=== PATIENT | female | born 1935 | race Caucasian/White ===

== ENCOUNTER 2018-03-08 10:46 | Inpatient (IN) ==
[2018-03-08] MEDS ORDERED: Morphine Inj 4 MG/ML Vial IV.PUSH ONE (11:14)
--- NOTE | 2018-03-08 11:36 | ED ---
HPI General Chief Complaint: Fall Stated Complaint: Fall/Lt shoulder pain Time Seen by Provider: 03/08/18 11:04 Source: patient Mode of arrival: EMS Limitations: no limitations History of Present Illness MD complaint: injury to: left and shoulder Onset (ago): minute(s) Other injuries: none Place: outdoors (fell onto concrete) Severity scale (1-10): 9 Relieving factors: immobilization Exacerbating factors: movement of extremity Context: fall Associated symptoms: denies other symptoms Treatments prior to arrival: cold therapy Related Data Home Medications Medication Instructions Recorded Confirmed No Known Home Medications 03/08/18 03/08/18 Allergies Allergy/AdvReac Type Severity Reaction Status Date / Time erythromycin base AdvReac Severe upset Unverified 03/08/18 11:01 stomach penicillin G AdvReac Severe upset Unverified 03/08/18 11:01 stomach Sulfa (Sulfonamide AdvReac Severe upset Unverified 03/08/18 11:01 Antibiotics) stomach Review of Systems ROS: all other systems reviewed are negative [facility] Medical History Medical History Fractured elbow (Acute) H/O: hysterectomy (Acute) Skin cancer (Acute) Surgical History Surgical History History of appendectomy (Acute) History of tonsillectomy (Acute) Social History Social History Substance History: No History of Abuse Smoking Status: Current every day smoker Tobacco Type: Cigarettes How Often Do You Have a Drink Containing Alcohol: Never Recent Travel in [facility] within the Last 8 Weeks: No Recent Out of Country Travel within the Last 8 Weeks: No Immunization History Tetanus Immunization: <5 Years Hx Influenza Vaccine This Season: No Exam Const General: cooperative, healthy appearing, well developed and well groomed Nutritional Appearance: thin (elderly) Orientation: alert, awake and oriented x3 HENMT Head: normal to inspection, normocephalic and atraumatic Eyes Alignment and Position: alignment normal Conjunctivae: conjunctivae normal Sclera: sclerae normal EOM: EOM intact bilaterally Neck Neck: normal visual inspection and full ROM Chest Chest: normal inspection of the chest Resp Effort & Inspection: normal respiratory effort and able to speak in complete sentences Cardio Rate: regular rate Rhythm: regular rhythm Back/Spine/Pelvis Cervical Spine: cervical ROM normal Thoracic/Lumbar Spine: thoraco-lumbar ROM normal Skin General: no rashes or lesions noted, turgor normal and other (intact) Neuro General: alert, awake, oriented x3, moves all extremities and CN's II-XI intact bilaterally Extrem Left upper extremity: normal capillary refill and shoulder/upper arm Details: abnormal to inspection, tenderness, abnormal ROM and deformity; no abrasions and no lacerations Psych Appearance: grossly normal Mental Status: mental status grossly normal Speech and Movement: speech and movement normal Mood: congruent mood Affect: normal affect Attitude: cooperative Thought Process: normal Thought Content: normal Judgment: judgment good Course Reevaluation(s) Reevaluation #1: Patient reports continued severe pain. She was initially treated with morphine, 4 mg IV. She will now be given Dilaudid, 2 mg IV. Time: 12:12 Consultations Consultation #1: Dr. Dashawn Ham will admit Time: 12:25 Initial Documented Vital Signs Temperature 97.8 F 03/08/18 10:56 Pulse Rate 99 H 03/08/18 10:56 Respiratory Rate 24 03/08/18 10:56 Blood Pressure 199/92 H 03/08/18 10:56 Pulse Oximetry 100 03/08/18 10:56 Last Documented Vital Signs Temperature 97.8 F 03/08/18 10:56 Pulse Rate 95 H 03/08/18 11:30 Respiratory Rate 20 03/08/18 11:30 Blood Pressure 201/85 H 03/08/18 11:30 Pulse Oximetry 98 03/08/18 11:30 Medical Decision Making [facility] Narrative Medical decision making narrative: This patient had a trip and fall landing on her left shoulder on concrete. This occurred just prior to presentation. She has no other injuries. On exam she does have an apparent deformity of her left shoulder just distal to the glenohumeral joint. It looks like she probably has a fracture of of the neck of the humerus. She is distally neurovascularly intact. X-rays pending. Her pain is being treated with IV morphine. Medical Screen Exam Complete: Yes Emergency Medical Condition: Yes Differential Diagnosis Differential Diagnosis: Differential diagnosis of extremity trauma includes but is not limited to fracture, sprain or strain, dislocation, contusion Imaging Data Attestation: I personally reviewed and interpreted this imaging study as follows : My impression: She has a fracture just distal to the left humeral head. Radiologist's impression: Humerus X-Ray 03/08/18 11:14 CONCLUSION: Under mineralized bones with transverse fracture through the proximal humeral neck, as above. Shoulder X-Ray 03/08/18 11:14 CONCLUSION: Under mineralized bones with a transverse minimally displaced fracture of the proximal humeral neck. Discharge Plan Discharge Disposition Patient Disposition: 30 Still Patient Discharge Details Diagnosis: Closed left humeral fracture, Hypertensive urgency Physicians Team ED Provider: Beata Emmanuel Rxs /Orders / Referrals /Forms Prescriptions: No Action No Known Home Medications RF: 0 Discharge Interventions Interventions: Vital Signs Last Done: 03/08/18 11:30 Status ED Status: Pending Admission
--- NOTE | 2018-03-08 12:08 | XR ---
EXAM DATE: 03/08/2018 11:14 AM EDT AGE/SEX: 82 years / Female INDICATIONS: Fell on left shoulder today, has pain, limited ROM CLINICAL DATA: This is the patient's initial encounter. Patient reports that signs and symptoms have been present for 1 day and indicates a pain score of 10/10. MEDICAL/SURGICAL HISTORY: None. None. COMPARISON: HPO, SHOULDER LIMITED LEFT 2V, 03/08/2018. . FINDINGS: AP and lateral views of the left humerus demonstrate a transverse fracture through the proximal humer al surgical neck region. Fracture is a minimally displaced by approximately 3 mm laterally with mild shortening. There is no glenohumeral joint dislocation. Acromioclavicular joint appears intact. No so ft tissue abnormality is identified. Bones are under mineralized. No rib fracture is seen. CONCLUSION: Under mineralized bones with transverse fracture through the proximal humeral neck, as above. Electronically signed by: Moy Purvis MD 03/08/2018 12:07 PM EDT
--- NOTE | 2018-03-08 12:09 | XR ---
EXAM DATE: 03/08/2018 11:14 AM EDT AGE/SEX: 82 years / Female INDICATIONS: Fell on left shoulder today, has pain, limited ROM CLINICAL DATA: This is the patient's initial encounter. Patient reports that signs and symptoms have been present for 1 day and indicates a pain score of 10/10. MEDICAL/SURGICAL HISTORY: None. None. COMPARISON: [facility]PO, HUMERUS LEFT MIN 2V, 03/08/2018. . FINDINGS: 3 views of the left shoulder demonstrate under mineralized bones with transverse minimally displaced fracture of the proximal humeral surgical neck. There is mild shortening. No glenohumeral joint dislo cation is seen. Acromioclavicular joint is intact. No soft tissue abnormality or radiopaque foreign b hank is identified. There is calcification of the aorta but visualized chest demonstrates no acute abn ormality or rib fracture. There is dextroscoliosis of the thoracic spine. CONCLUSION: Under mineralized bones with a transverse minimally displaced fracture of the proximal humeral neck. Electronically signed by: Moy Purvis MD 03/08/2018 12:08 PM EDT
[2018-03-08] MEDS ORDERED: HYDROmorphone PF Inj 2 MG/ML Vial IV.PUSH ONE (12:12)
--- NOTE | 2018-03-08 12:33 | P.HPIM ---
History of Present Illness History of Present Illness: Mr. Nguyễn is an 82 year old female. She is here after a fall. The fall occured at home, in her yard, due to poor balance. Her sons, present at bedside , report that she has fallen several times this year. She has a proximal left humerus fracture after this fall. Additionally HTN urgency is present. She is not on treatment for HTN at baseline. BP is greater than 200 mmHg systolic. BP remains such at time of admit and exam. No other complaints today. - Diagnosis (1) Closed left humeral fracture (2) Hypertensive urgency Inpatient Certification: I certify that the inpatient services were ordered in accordance with Medicare regulations governing the order. This includes certification that hospital inpatient services are reasonable and necessary and in the case of services not specified as inpatient-only under 42 CFR 419.22(n), that they are appropriately provided as inpatient services in accordance to with the 2-midnight benchmark under 43 CFR 412.3(e) Estimated Total Length of Stay (Days): 3 Plans for Post Hospital Care: SNF Review of Systems Constitutional: No fevers, no chills no night sweats, no fatigue, no weakness Eyes: No eye pain, no blurry vision, no loss of vision ENT: No sore throat, no ear pain, no rhinorrhea Cardiovascular: No chest pain, no tachycardia, no palpitations, no shortness of breath, no syncope Respiratory: No wheezing, no cough, no shortness of breath Gastrointestinal: No abdominal pain, no black tarry stools, no bright red blood per rectum, no vomiting, no diarrhea Musculoskeletal: joint pain, no muscle cramps, no stiffness Integumentary: No rash, no ulcers, no drainage Neurologic: No sensory loss, no loss of motor function, no dizziness Psychiatric: No behavioral changes, no hallucinations, no suicidal ideations PMFSH - History History Provided By: Patient - Medical History Medical History: Medical History (Last Reviewed 03/08/18 @ 11:34 by Beata Emmanuel) Fractured elbow H/O: hysterectomy Skin cancer - Surgical History Surgical History: Surgical History (Last Reviewed 03/08/18 @ 11:34 by Beata Emmanuel) History of appendectomy History of tonsillectomy - Family History Family History: Family History (Last Updated 03/08/18 @ 12:30 by Sheldon Ham MD) Other Osteoarthritis - Tobacco History Tobacco Use In Past 30 Days: Yes Smoking Status: Current every day smoker Tobacco Type: Cigarettes - Alcohol History How Often Do You Have a Drink Containing Alcohol: Never - Substance Use History Substance History: No History of Abuse - Travel History Recent Travel in the [place] Within the Last 8 Weeks: No Recent Travel Out of the Country Within the Last 8 Weeks: No - Immunization History Tetanus Immunization: <5 Years Hx Influenza Vaccine This Season: No Medications and Allergies Active Medications: Active Medications Hydrocodone Bitart/Acetaminophen ([place] 5/325) 1 tab PO Q4H PRN PRN Reason: Pain 3 to 6 Hydrocodone Bitart/Acetaminophen ([place] 10/325) 1 tab PO Q4H PRN PRN Reason: Pain 7 to 10 Al Hydroxide/Mg Hydroxide (Milk Of Rafaela Liq) 30 ml PO Q12H PRN PRN Reason: Mild Constipation Clonidine HCl (Catapres) 0.1 mg PO Q6H PRN PRN Reason: SYS BP GREATER THAN 160 MMHG Enalaprilat (Vasotec Inj) 1.25 mg IV.PUSH Q6H PRN PRN Reason: SBP>160, DBP>90 Ondansetron HCl (Zofran Inj) 4 mg IV.PUSH Q6H PRN PRN Reason: NAUSEA OR VOMITING Allergies Allergy/AdvReac Type Severity Reaction Status Date / Time erythromycin base AdvReac Severe upset Unverified 03/08/18 11:01 stomach penicillin G AdvReac Severe upset Unverified 03/08/18 11:01 stomach Sulfa (Sulfonamide AdvReac Severe upset Unverified 03/08/18 11:01 Antibiotics) stomach Home Medications Medication Instructions Recorded Confirmed Type No Known Home Medications 03/08/18 03/08/18 History Exam Vital signs: Vital Signs 03/08/18 10:56 03/08/18 11:30 Temperature 97.8 F Pulse Rate 99 H 95 H Respiratory Rate 24 20 Blood Pressure 199/92 H 201/85 H Pulse Oximetry 100 98 Intake & Output 03/07/18 03/08/18 03/08/18 18:59 06:59 18:59 Weight 47.5 kg Narrative: GENERAL: NAD, A&Ox3 HEAD: Normocephalic. NECK: Supple, trachea midline. No lymphadenopathy. EYES: No scleral icterus. No injection or drainage. CARDIOVASCULAR: Regular rate and rhythm without murmurs, gallops, or rubs. RESPIRATORY: Breath sounds equal bilaterally. No accessory muscle use. GASTROINTESTINAL: Abdomen soft, non-tender, nondistended. MUSCULOSKELETAL: No cyanosis, or edema. SKIN: Warm and dry. NEURO: No focal neurological deficits. Results - Labs CBC & Chem 7: 03/08/18 13:30 03/08/18 13:30 - Imaging Impressions Humerus X-Ray 03/08/18 11:14 CONCLUSION: Under mineralized bones with transverse fracture through the proximal humeral neck, as above. Shoulder X-Ray 03/08/18 11:14 CONCLUSION: Under mineralized bones with a transverse minimally displaced fracture of the proximal humeral neck. Caprini VTE Risk Assessment Caprini VTE Risk Assessment: No/Low Risk (score <= 1) Caprini Risk Assessment Model: Point Value = 1 Point Value = 2 Point Value = 3 Point Value = 5 Age 41-60 Minor surgery BMI > 25 kg/m2 Swollen legs Varicose veins or History of unexplained or recurrent spontaneous Oral contraceptives or hormone replacement Sepsis (< 1 month) Serious lung disease, including pneumonia (< 1 month) Abnormal pulmonary function Acute myocardial infarction Congestive heart failure (< 1 month) History of inflammatory bowel disease Medical patient at bed rest Age 61-74 Arthroscopic surgery Major open surgery (> 45 min) Laparoscopic surgery (> 45 min) Malignancy Confined to bed (> 72 hours) Immobilizing plaster cast Central venous access Age >= 75 History of VTE Family history of VTE Factor V Leiden Prothrombin [id number] Lupus anticoagulant Anticardiolipin antibodies Elevated serum homocysteine Heparin-induced thrombocytopenia Other congenital or acquired thrombophilia Stroke (< 1 month) Elective arthroplasty Hip, pelvis, or leg fracture Acute spinal cord injury (< 1 month) Prophylaxis Regimen: Total Risk Factor Score Risk Level Prophylaxis Regimen 0-1 Low Early ambulation 2 Moderate Order ONE of the following: *Sequential Compression Device (SCD) *Heparin 5000 units SQ BID 3-4 Higher Order ONE of the following medications: *Heparin 5000 units SQ TID *Enoxaparin/Lovenox 40 mg SQ daily (WT < 150 kg, CrCl > 30 mL/min) *Enoxaparin/Lovenox 30 mg SQ daily (WT < 150 kg, CrCl > 10-29 mL/min) *Enoxaparin/Lovenox 30 mg SQ BID (WT < 150 kg, CrCl > 30 mL/min) AND/OR *Sequential Compression Device (SCD) 5 or more Highest Order ONE of the following medications: *Heparin 5000 units SQ TID (Preferred with Epidurals) *Enoxaparin/Lovenox 40 mg SQ daily (WT < 150 kg, CrCl > 30 mL/min) *Enoxaparin/Lovenox 30 mg SQ daily (WT < 150 kg, CrCl > 10-29 mL/min) *Enoxaparin/Lovenox 30 mg SQ BID (WT < 150 kg, CrCl > 30 mL/min) AND *Sequential Compression Device (SCD) Assessment and Plan - Assessment (1) Closed left humeral fracture Code(s): S42.302A - Unspecified fracture of shaft of humerus, left arm, initial encounter for closed fracture Status: Acute (2) Hypertensive urgency Code(s): I16.0 - Hypertensive urgency Status: Acute - Plan 82-year-old female admitted secondary to acute left proximal humerus fracture and hypertensive urgency Acute Left proximal humerus fracture Sling placed This is a nonsurgical fracture Obtain physical therapy Obtain occupational therapy screen for underlying etiology of weakness with urinalysis, CBC, and CMP [place] as needed for pain Hypertensive urgency As needed clonidine As needed IV enalapril Follow blood pressures Treat pain as above DVT Prophylaxis SCDs (1) Closed left humeral fracture Qualifiers: Encounter type: initial encounter Humerus Location: proximal Fracture morphology: other fracture Fracture alignment: displaced Qualified Code(s): S42.292A - Other displaced fracture of upper end of left humerus, initial encounter for closed fracture
[2018-03-08 13:42] LABS: Baso # (Auto) 0.2 th/mm3 (0.0-0.2); Baso % (Auto) 1.3 % (0.0-2.0); Eos % (Auto) 0.1 % (0.0-4.0); Hematocrit 34.1 % (35.0-46.0); Hemoglobin 11.3 gm/dL (11.6-15.3); Lymph # (Auto) 1.6 th/mm3 (1.0-4.8); Lymph % (Auto) 9.4 % (9.0-44.0); Mean Corpuscular Hemoglobin 30.3 pg (27.0-34.0); Mean Corpuscular Volume 91.8 fL (80.0-100.0); Mean Platelet Volume 7.2 fL (7.0-11.0); Mono # (Auto) 0.6 th/mm3 (0.0-0.9); Mono % (Auto) 3.6 % (0.0-8.0); Neut # (Auto) 14.2 th/mm3 (1.8-7.7); Neut % (Auto) 85.6 % (16.0-70.0); Platelet Count 314 th/mm3 (150-450); Red Blood Count 3.71 mil/mm3 (4.00-5.30); Red Cell Distribution Width 13.1 % (11.6-17.2); White Blood Count 16.6 th/mm3 (4.0-11.0)
[2018-03-08 13:53] LABS: Chloride 109 meq/L (98-107); Potassium 3.9 meq/L (3.5-5.1); Sodium 143 meq/L (136-145)
[2018-03-08 13:56] LABS: Albumin 3.6 g/dL (3.4-5.0); Anion Gap 10 meq/L (5-15); Calcium 8.4 mg/dL (8.5-10.1); Carbon Dioxide 23.7 meq/L (21.0-32.0); Glucose,Random 120 mg/dL (74-106)
[2018-03-08 13:57] LABS: Blood Urea Nitrogen 17 mg/dL (7-18)
[2018-03-08 13:59] LABS: Alanine Aminotransferase 14 U/L (10-53)
[2018-03-08 14:00] LABS: Aspartate Aminotransferase 20 U/L (15-37); Glomerular Filtration Rate 54 mL/min (>89)
[2018-03-08 14:01] LABS: Total Protein 6.5 g/dL (6.4-8.2)
[2018-03-08 14:02] LABS: Alkaline Phosphatase 94 U/L (45-117)
[2018-03-09 00:09] LABS: Bilirubin,Urine Negative (Negative); Clarity,Urine Clear (Clear); Color,Urine Yellow (Yellw/Straw); Glucose,Urine (UA) Negative (Negative); Leukocyte Esterase,Urine Trace (Negative); Nitrite,Urine Negative (Negative); Specific Gravity,Urine 1.025 (1.002-1.035); Urobilinogen,Urine 0.2 mg/dL (Less than 2)
[2018-03-09 00:19] LABS: Bacteria,Urine Occasional /hpf; RBC,Urine 0-3 /hpf (0-3)
[2018-03-09 06:44] LABS: Baso % (Auto) 0.3 % (0.0-2.0); Eos % (Auto) 0.3 % (0.0-4.0); Hematocrit 30.9 % (35.0-46.0); Hemoglobin 10.2 gm/dL (11.6-15.3); Lymph # (Auto) 1.3 th/mm3 (1.0-4.8); Lymph % (Auto) 14.7 % (9.0-44.0); Mean Corpuscular HGB Conc 33.1 % (32.0-36.0); Mean Corpuscular Hemoglobin 30.7 pg (27.0-34.0); Mean Corpuscular Volume 92.6 fL (80.0-100.0); Mean Platelet Volume 7.9 fL (7.0-11.0); Mono # (Auto) 0.6 th/mm3 (0.0-0.9); Neut # (Auto) 6.9 th/mm3 (1.8-7.7); Neut % (Auto) 77.7 % (16.0-70.0); Platelet Count 266 th/mm3 (150-450); Red Blood Count 3.34 mil/mm3 (4.00-5.30); Red Cell Distribution Width 13.1 % (11.6-17.2); White Blood Count 8.8 th/mm3 (4.0-11.0)
[2018-03-09 06:50] LABS: Chloride 106 meq/L (98-107); Potassium 3.9 meq/L (3.5-5.1); Sodium 141 meq/L (136-145)
[2018-03-09 06:58] LABS: Calcium 8.4 mg/dL (8.5-10.1)
[2018-03-09 06:59] LABS: Albumin 3.2 g/dL (3.4-5.0); Anion Gap 8 meq/L (5-15); Blood Urea Nitrogen 17 mg/dL (7-18); Carbon Dioxide 26.8 meq/L (21.0-32.0); Glucose,Random 100 mg/dL (74-106)
[2018-03-09 07:02] LABS: Alanine Aminotransferase 17 U/L (10-53); Aspartate Aminotransferase 18 U/L (15-37); Glomerular Filtration Rate 65 mL/min (>89)
[2018-03-09 07:03] LABS: Total Protein 6.3 g/dL (6.4-8.2)
[2018-03-09 07:04] LABS: Alkaline Phosphatase 92 U/L (45-117)
--- NOTE | 2018-03-09 12:56 | P.PNIM ---
Subjective Interval history: Ambulation is not yet adequate for discharge home. Patient may need long term facility at discharge. No new complaints today. Physical Exam Vital signs: Vital Signs 03/08/18 13:25 03/08/18 14:00 03/08/18 18:41 Temperature Pulse Rate 101 H 99 H Respiratory Rate 17 20 Blood Pressure 178/81 H 142/88 H 130/80 Pulse Oximetry 03/08/18 20:00 03/08/18 23:50 03/09/18 00:00 Temperature 97.5 F L 96.4 F L Pulse Rate 88 88 Respiratory Rate 20 16 20 Blood Pressure 161/82 H 167/81 H Pulse Oximetry 99 98 03/09/18 04:00 03/09/18 08:00 Temperature 96.6 F L 97.4 F L Pulse Rate 82 81 Respiratory Rate 20 19 Blood Pressure 146/74 H 77/46 L Pulse Oximetry 97 99 Intake & Output 03/08/18 03/09/18 03/09/18 18:59 06:59 18:59 Intake Total 60 / 60 120 / 120 Balance 60 / 60 120 / 120 Weight 47.5 kg 46.1 kg Intake: Oral 60 / 60 120 / 120 Other: # Voids 2 Weight On Admission 47.5 kg Narrative: GENERAL: NAD, A&Ox3 HEAD: Normocephalic. NECK: Supple, trachea midline. No lymphadenopathy. EYES: No scleral icterus. No injection or drainage. CARDIOVASCULAR: Regular rate and rhythm without murmurs, gallops, or rubs. RESPIRATORY: Breath sounds equal bilaterally. No accessory muscle use. GASTROINTESTINAL: Abdomen soft, non-tender, nondistended. MUSCULOSKELETAL: No cyanosis, or edema. Left arm is presently in a sling. SKIN: Warm and dry. NEURO: No focal neurological deficits. Results - Labs CBC & Chem 7: 03/09/18 05:10 03/09/18 05:10 Laboratory Results - last 24 hr 03/08/18 03/08/18 03/08/18 13:30 13:30 23:50 CBC w Diff Auto diff final WBC 16.6 H RBC 3.71 L Hgb 11.3 L Hct 34.1 L MCV 91.8 MCH 30.3 MCHC 33.0 RDW 13.1 Plt Count 314 MPV 7.2 Neut % (Auto) 85.6 H Lymph % (Auto) 9.4 Morris % (Auto) 3.6 Eos % (Auto) 0.1 Baso % (Auto) 1.3 Neut # (Auto) 14.2 H Lymph # (Auto) 1.6 Morris # (Auto) 0.6 Eos # (Auto) 0.0 Baso # (Auto) 0.2 WBC Differential . Differential Comment . Sodium 143 Potassium 3.9 Chloride 109 H Carbon Dioxide 23.7 Anion Gap 10 BUN 17 Creatinine 0.98 Estimated GFR 54 L Random Glucose 120 H Calcium 8.4 L Total Bilirubin 0.4 AST 20 ALT 14 Alkaline Phosphatase 94 Total Protein 6.5 Albumin 3.6 Urine Color Yellow Urine Clarity Clear Urine pH 6.0 Ur Specific [place] 1.025 Urine Protein Trace Urine Glucose (UA) Negative Urine Ketones Trace H Urine Occult Blood Negative Urine Nitrate Negative Urine Bilirubin Negative Urine Urobilinogen 0.2 Ur Leukocyte Esterase Trace H Urine RBC 0-3 Urine WBC 6-8 H Ur Squamous Epith Cells 6-10 H Urine Bacteria Occasional H Micro UA Comment Culture not ind Ur Microscopic Review Microscopic reviewed Urine Culture Comments Culture not ind 03/09/18 03/09/18 05:10 05:10 CBC w Diff Auto diff final WBC 8.8 RBC 3.34 L Hgb 10.2 L Hct 30.9 L MCV 92.6 MCH 30.7 MCHC 33.1 RDW 13.1 Plt Count 266 MPV 7.9 Neut % (Auto) 77.7 H Lymph % (Auto) 14.7 Morris % (Auto) 7.0 Eos % (Auto) 0.3 Baso % (Auto) 0.3 Neut # (Auto) 6.9 Lymph # (Auto) 1.3 Morris # (Auto) 0.6 Eos # (Auto) 0.0 Baso # (Auto) 0.0 WBC Differential . Differential Comment . Sodium 141 Potassium 3.9 Chloride 106 Carbon Dioxide 26.8 Anion Gap 8 BUN 17 Creatinine 0.83 Estimated GFR 65 L Random Glucose 100 Calcium 8.4 L Total Bilirubin 0.7 AST 18 ALT 17 Alkaline Phosphatase 92 Total Protein 6.3 L Albumin 3.2 L Urine Color Urine Clarity Urine pH Ur Specific [place] Urine Protein Urine Glucose (UA) Urine Ketones Urine Occult Blood Urine Nitrate Urine Bilirubin Urine Urobilinogen Ur Leukocyte Esterase Urine RBC Urine WBC Ur Squamous Epith Cells Urine Bacteria Micro UA Comment Ur Microscopic Review Urine Culture Comments Assessment and Plan - Assessment (1) Closed left humeral fracture Code(s): S42.302A - Status: Inactive (2) Hypertensive urgency Code(s): I16.0 - Hypertensive urgency Status: Inactive - Plan 82-year-old female admitted secondary to acute left proximal humerus fracture and hypertensive urgency Acute Left proximal humerus fracture Sling placed Swath and sling recommended to family. This is a nonsurgical fracture Continue physical therapy Continue occupational therapy screen for underlying etiology of weakness with urinalysis, CBC, and CMP [place] as needed for pain Hypertensive urgency Improved As needed clonidine As needed IV enalapril Follow blood pressures Treat pain as above DVT Prophylaxis SCDs (1) Closed left humeral fracture Qualifiers: Encounter type: initial encounter Humerus Location: proximal Fracture morphology: other fracture Fracture alignment: displaced Qualified Code(s): S42.292A - Other displaced fracture of upper end of left humerus, initial encounter for closed fracture
--- NOTE | 2018-03-10 09:38 | P.PNIM ---
Subjective Interval history: Patient has ambulated short distances. She is not functional for return to home. Anticipate care home facility at discharge. Physical Exam Vital signs: Vital Signs 03/09/18 12:00 03/09/18 14:00 03/09/18 16:00 Temperature 97.4 F L 98.5 F 97.4 F L Pulse Rate 81 84 80 Respiratory Rate 19 21 21 Blood Pressure 172/73 H 180/85 H 117/56 L Pulse Oximetry 99 97 97 03/09/18 20:00 03/10/18 00:00 03/10/18 08:00 Temperature 97.7 F 96.8 F L 98.1 F Pulse Rate 92 H 89 88 Respiratory Rate 18 18 19 Blood Pressure 131/61 135/62 151/67 H Pulse Oximetry 95 96 Intake & Output 03/09/18 03/10/18 03/10/18 18:59 06:59 18:59 Intake Total 240 / 240 425 / 425 240 / 240 Output Total 120 / 120 240 / 240 Balance 120 / 120 425 / 425 0 / 0 Weight 46.6 kg Intake: Oral 240 / 240 425 / 425 240 / 240 Output: Urine 120 / 120 240 / 240 Other: # Voids 1 Narrative: GENERAL: NAD, A&Ox3 HEAD: Normocephalic. NECK: Supple, trachea midline. No lymphadenopathy. EYES: No scleral icterus. No injection or drainage. CARDIOVASCULAR: Regular rate and rhythm without murmurs, gallops, or rubs. RESPIRATORY: Breath sounds equal bilaterally. No accessory muscle use. GASTROINTESTINAL: Abdomen soft, non-tender, nondistended. MUSCULOSKELETAL: No cyanosis, or edema. Left arm is presently in a sling. SKIN: Warm and dry. NEURO: No focal neurological deficits. Results - Labs CBC & Chem 7: 03/09/18 05:10 03/09/18 05:10 Assessment and Plan - Assessment (1) Closed left humeral fracture Code(s): S42.302A - Unspecified fracture of shaft of humerus, left arm, initial encounter for closed fracture Status: Inactive (2) Hypertensive urgency Code(s): I16.0 - Hypertensive urgency Status: Inactive - Plan 82-year-old female admitted secondary to acute left proximal humerus fracture and hypertensive urgency Anticipate care home facility discharge tomorrow. Continue pain treatments. Continue working with physical therapy and Occupational Therapy. Acute Left proximal humerus fracture Sling placed Swath and sling recommended to family. This is a nonsurgical fracture Continue physical therapy Continue occupational therapy screen for underlying etiology of weakness with urinalysis, CBC, and CMP [place] as needed for pain Hypertensive urgency Improved As needed clonidine As needed IV enalapril Follow blood pressures Treat pain as above DVT Prophylaxis SCDs (1) Closed left humeral fracture Qualifiers: Encounter type: initial encounter Humerus Location: proximal Fracture morphology: other fracture Fracture alignment: displaced Qualified Code(s): S42.292A - Other displaced fracture of upper end of left humerus, initial encounter for closed fracture
--- NOTE | 2018-03-10 15:57 | P.DS ---
Date of admission: 03/08/18 12:24 Primary care physician: No Primary Care Physician Brief History from admission: Mr. Nguyễn is an 82 year old female. She is here after a fall. The fall occured at home, in her yard, due to poor balance. Her sons, present at bedside , report that she has fallen several times this year. She has a proximal left humerus fracture after this fall. Additionally HTN urgency is present. She is not on treatment for HTN at baseline. BP is greater than 200 mmHg systolic. BP remains such at time of admit and exam. No other complaints today. DS: Diagnosis - Discharge Diagnosis (1) Closed left humeral fracture Status: Inactive (2) Hypertensive urgency Status: Inactive DS: Medications - Discharge Medications Prescriptions: clonidine HCl [Catapres] 0.1 mg PO Q6H PRN #20 tab PRN Reason: Sys Bp Greater Than 160 Mmhg hydrocodone-acetaminophen 1 tab PO Q4H PRN #20 tab PRN Reason: Pain 3 to 10 DS: Summary Hospital Course: Mrs. Nguyễn is an 82-year-old female. She was admitted secondary to hypertensive urgency and left proximal humerus fracture. The humerus was not displaced. Patient was placed in a splint. She has been recovering well. However, she is not ambulating at baseline and not safe for discharge to home. Hypertensive urgency has been controlled. At this point patient is medically stable and cleared for transfer to inpatient rehab with continuation of therapy until she becomes stable for discharge home. Discharged today. - Time Spent with Patient Total time spent providing and/or coordinating discharge services: Less than 30 minutes - Quality: VTE Deep Vein Thrombosis/Pulmonary Embolism Present on Admission: No Exam Vital signs: Vital Signs 03/09/18 16:00 03/09/18 20:00 03/10/18 00:00 Temperature 97.4 F L 97.7 F 96.8 F L Pulse Rate 80 92 H 89 Respiratory Rate 21 18 18 Blood Pressure 117/56 L 131/61 135/62 Pulse Oximetry 97 95 03/10/18 08:00 03/10/18 12:00 Temperature 98.1 F 98.3 F Pulse Rate 88 89 Respiratory Rate 19 20 Blood Pressure 151/67 H 166/77 H Pulse Oximetry 96 96 Intake & Output 03/09/18 03/10/18 03/10/18 18:59 06:59 18:59 Intake Total 240 / 240 425 / 425 360 / 360 Output Total 120 / 120 240 / 240 Balance 120 / 120 425 / 425 120 / 120 Weight 46.6 kg Intake: Oral 240 / 240 425 / 425 360 / 360 Output: Urine 120 / 120 240 / 240 Other: # Voids 1 Results Procedures completed during hospitalization: None - Impressions ITS Impressions Humerus X-Ray 03/08/18 11:14 CONCLUSION: Under mineralized bones with transverse fracture through the proximal humeral neck, as above. Shoulder X-Ray 03/08/18 11:14 CONCLUSION: Under mineralized bones with a transverse minimally displaced fracture of the proximal humeral neck. Discharge Plan - Discharge Disposition Patient Disposition: [facility] Inpatient - Discharge Condition Condition: Stable - Discharge Order Discharge Orders: Discharge Order (Routine); Ordered 03/10/18 Ordered By: Sheldon Ham - Discharge Details Anticipated Discharge Date: 03/10/18 - Physicians Team Primary Care Provider: Primary Care Yue,No Attending Provider: Sheldon Ham
--- NOTE | 2018-03-10 17:00 | P.PN ---
Subjective Interval history: NOT SEEN Physical Exam Vital signs: Vital Signs 03/09/18 20:00 03/10/18 00:00 03/10/18 08:00 Temperature 97.7 F 96.8 F L 98.1 F Pulse Rate 92 H 89 88 Respiratory Rate 18 18 19 Blood Pressure 131/61 135/62 151/67 H Pulse Oximetry 95 96 03/10/18 12:00 Temperature 98.3 F Pulse Rate 89 Respiratory Rate 20 Blood Pressure 166/77 H Pulse Oximetry 96 Intake & Output 03/09/18 03/10/18 03/10/18 18:59 06:59 18:59 Intake Total 240 / 240 425 / 425 360 / 360 Output Total 120 / 120 240 / 240 Balance 120 / 120 425 / 425 120 / 120 Weight 46.6 kg Intake: Oral 240 / 240 425 / 425 360 / 360 Output: Urine 120 / 120 240 / 240 Other: # Voids 1 Narrative: GENERAL: NAD, A&Ox3 HEAD: Normocephalic. NECK: Supple, trachea midline. No lymphadenopathy. EYES: No scleral icterus. No injection or drainage. CARDIOVASCULAR: Regular rate and rhythm without murmurs, gallops, or rubs. RESPIRATORY: Breath sounds equal bilaterally. No accessory muscle use. GASTROINTESTINAL: Abdomen soft, non-tender, nondistended. MUSCULOSKELETAL: No cyanosis, or edema. Left arm is presently in a sling. SKIN: Warm and dry. NEURO: No focal neurological deficits. Results - Labs CBC & Chem 7: 03/09/18 05:10 03/09/18 05:10 - Imaging ITS Impressions Humerus X-Ray 03/08/18 11:14 CONCLUSION: Under mineralized bones with transverse fracture through the proximal humeral neck, as above. Shoulder X-Ray 03/08/18 11:14 CONCLUSION: Under mineralized bones with a transverse minimally displaced fracture of the proximal humeral neck. - Procedures None Assessment and Plan - Assessment (1) Closed left humeral fracture Code(s): S42.302A - Unspecified fracture of shaft of humerus, left arm, initial encounter for closed fracture Status: Inactive (2) Hypertensive urgency Code(s): I16.0 - Hypertensive urgency Status: Inactive - Plan 82-year-old female admitted secondary to acute left proximal humerus fracture and hypertensive urgency Anticipate halfway facility discharge tomorrow. Continue pain treatments. Continue working with physical therapy and Occupational Therapy. Acute Left proximal humerus fracture Sling placed Swath and sling recommended to family. This is a nonsurgical fracture Continue physical therapy Continue occupational therapy [place] as needed for pain Hypertensive urgency Improved As needed clonidine As needed IV enalapril Follow blood pressures Treat pain as above DVT Prophylaxis SCDs (1) Closed left humeral fracture Qualifiers: Encounter type: initial encounter Humerus Location: proximal Fracture morphology: other fracture Fracture alignment: displaced Qualified Code(s): S42.292A - Other displaced fracture of upper end of left humerus, initial encounter for closed fracture
[2018-03-11 08:31] VITALS: BP 165/86; PULSE 85; RESP 20; TEMP 96.8; O2SAT 95
--- NOTE | 2018-03-11 09:04 | P.PN ---
Subjective Interval history: Follow-up elevated blood pressure and left arm fracture. States she is doing okay. Has pain with movement of the left arm. Denies numbness. No history of hypertension seen with daughter Physical Exam Vital signs: Vital Signs 03/10/18 12:00 03/10/18 16:00 03/10/18 20:00 Temperature 98.3 F 98.9 F 97.8 F Pulse Rate 89 88 89 Respiratory Rate 20 20 18 Blood Pressure 166/77 H 134/60 176/72 H Pulse Oximetry 96 96 94 L 03/11/18 00:00 03/11/18 08:00 Temperature 97.2 F L 96.8 F L Pulse Rate 79 85 Respiratory Rate 18 20 Blood Pressure 160/74 H 165/86 H Pulse Oximetry 100 95 Intake & Output 03/10/18 03/11/18 03/11/18 18:59 06:59 18:59 Intake Total 840 / 840 60 / 60 Output Total 440 / 440 Balance 400 / 400 60 / 60 Weight 46.6 kg Intake: Oral 840 / 840 60 / 60 Output: Urine 440 / 440 Other: # Voids 1 Narrative: GENERAL: NAD, A&Ox3 CARDIOVASCULAR: Regular rate and rhythm without murmurs, gallops, or rubs. RESPIRATORY: Breath sounds equal bilaterally. No accessory muscle use. GASTROINTESTINAL: Abdomen soft, non-tender, nondistended. MUSCULOSKELETAL: No cyanosis, or edema. Left arm is presently in a sling. Neurovascularly intact SKIN: Warm and dry. NEURO: No focal neurological deficits. Results - Labs CBC & Chem 7: 03/09/18 05:10 03/09/18 05:10 - Imaging ITS Impressions Humerus X-Ray 03/08/18 11:14 CONCLUSION: Under mineralized bones with transverse fracture through the proximal humeral neck, as above. Shoulder X-Ray 03/08/18 11:14 CONCLUSION: Under mineralized bones with a transverse minimally displaced fracture of the proximal humeral neck. - Procedures None Assessment and Plan - Assessment (1) Closed left humeral fracture Code(s): S42.302A - Unspecified fracture of shaft of humerus, left arm, initial encounter for closed fracture Status: Inactive (2) Hypertensive urgency Code(s): I16.0 - Hypertensive urgency Status: Inactive - Plan 82-year-old female admitted secondary to acute left proximal humerus fracture and hypertensive urgency Acute Left proximal humerus fracture Sling placed Swath and sling recommended to family. This is a nonsurgical fracture Continue physical therapy Continue occupational therapy [place] as needed for pain Outpatient follow-up with orthopedic surgery Hypertensive urgency Improved. Likely related to pain. As needed clonidine in the absence of pain As needed IV enalapril in the absence of pain Follow blood pressures Treat pain as above DVT Prophylaxis SCDs Discharge Planning: Discharge to [facility] when arranged (1) Closed left humeral fracture Qualifiers: Encounter type: initial encounter Humerus Location: proximal Fracture morphology: other fracture Fracture alignment: displaced Qualified Code(s): S42.292A - Other displaced fracture of upper end of left humerus, initial encounter for closed fracture
== END 2018-03-11 10:35 ==
LOC: PHED 10:46 → PHEDA 12:24 → PH3 14:35
PROVIDERS: ADMIT Internal Medicine; ATTEND Internal Medicine